=== PATIENT | female | born 1975 | race Caucasian/White ===

== ENCOUNTER 2016-12-31 18:34 | Emergency (ER) | payer OTHER ==
--- NOTE | 2016-12-31 21:55 | ED ORDER SUMMARY ---
..... Patient: LIVAN HOLLOWAY OrderSheet [facility] VisitID: [id number] [address] [place] [address] 41y, F Registration Date/Time: 12/31/2016 ORDER SHEET Weight: 109.7 kg (stated) Allergies: Amoxicillin GENERAL ORDERS: Pulse oximeter (:12/31/2016 RMarsden R.N. per protocol) (19:32 HSoule) Vitals (:12/31/2016 RMarsden R.N. per protocol) (19:32 HSoule) Chest 2V Urgent (19:12/31/2016 ABlanchette PA-C) (Ack 19:34 AMcQuoid ER Tech1) (20:20 RMarsden R.N.) US Venous Right (right leg pain with shortness of breath) Urgent (19:12/31/2016 ABlanchette PA-C) (Ack 19:34 AMcQuoid ER Tech1) (20:53 RMarsden R.N.) CTA Thorax w Cont (No) (pending) (r/o PE, short of breath since last night) Urgent (19:28 12/31/2016 ABlanchette PA-C) (Ack 19:34 AMcQuoid ER Tech1) (Cancelled: Other20:00 ABlanchette PA-C) CBC w Diff Urgent (19:30 12/31/2016 ABlanchette PA-C) (Ack 19:34 AMcQuoid ER Tech1) (19:38 RMarsden R.N.) CMP Urgent (19:30 12/31/2016 ABlanchette PA-C) (Ack 19:34 AMcQuoid ER Tech1) (19:38 RMarsden R.N.) D-Dimer Urgent (19:30 12/31/2016 ABlanchette PA-C) (Ack 19:34 AMcQuoid ER Tech1) (19:38 RMarsden R.N.) BNP Urgent (19:30 12/31/2016 ABlanchette PA-C) (Ack 19:34 AMcQuoid ER Tech1) (19:38 RMarsden R.N.) PT with INR Urgent (19:30 12/31/2016 ABlanchette PA-C) (Ack 19:34 AMcQuoid ER Tech1) (19:38 Queenie R.N.) MEDICATION ORDERS: IV FLUIDS: IV Saline Lock (19:15 12/31/2016 Queenie R.N. per protocol) (19:39 Queenie R.N.) ORDER SHEET NOTES: [Electronically signed by Char Aguirre PA-C (23:47 12/31/2016)] [Electronically signed by Evelyn Sanabria R.N. (02:54 01/01/2017)] [Electronically locked/signed by Evelyn Sanabria R.N. (02:54 01/01/2017)]
--- NOTE | 2016-12-31 21:55 | ED NURSING NOTES ---
Clinical Report - Nurses [facility] [address] [place] [address] 12/31/2016 18:36 Patient: LIVAN HOLLOWAY TRIAGE Triage time 19:00. Acuity: LEVEL 3. Chief Complaint: (SOB, R calf pain). 19:11 12/31/16. Alert. No acute distress. SEPSIS SCREEN: Sepsis Screen. Negative (no infection suspected/documented). ELI COMA SCORE: Eli Coma Scale: 15- eyes open spontaneously (4); best verbal response- oriented x 4 (5); best motor response- obeys commands (6). --19:11 Evelyn Sanabria R.N. 19:04 12/31/16. BP: 145/77 (regular adult cuff) taken on the left arm, while sitting. HR: 94. RR: 24. O2 saturation: 100%. Temp: 98.6 F. Pain level now: 02/20. --19:11 Evelyn Sanabria R.N. Weight: 109.7 kg stated. Height/Length: 66 inches Per Patient. BMI: 39.1. --19:11 Evelyn Sanabria R.N. Medications None. --19:07 Evelyn Sanabria R.N. Allergies Amoxicillin. --19:07 Evelyn Sanabria R.N. History Arrived by private vehicle. Historian: patient. Primary physician ([facility]). ( Patient was sent to ED from urgent care.). Onset. (Patient states she has had consistent calf pain for one week. She reports that SOB started last night.). ( Patient states she was diagnosed with cellulitis above her R ankle in June and reports that the same area has been "tingling since the leg pain started."). Treatment MANAGER TESTING: Took ibuprofen. (ice). PAST MEDICAL HX: Immunizations: up-to-date. Denies current . SOCIAL HX: Never smoker. No alcohol use or drug use. No infectious disease exposure. FALL RISK ASSESSMENT: Fall risk assessment completed. No fall risk identified. NUTRITIONAL RISK ASSESSMENT: The nutritional risk assessment revealed no deficiencies. FUNCTIONAL ASSESSMENT: Functional assessment: no impairments noted. LEARNING NEEDS ASSESSMENT: The learning needs assessment revealed no barriers. SKIN INTEGRITY ASSESSMENT: Skin integrity risk assessment completed. No skin integrity risk identified. --19:11 Evelyn Sanabria R.N. PROBLEMS: no known problems. ADDITIONAL SURGERIES: Tonsillectomy. --19:07 Evelyn Sanabria R.N. Interventions ID band on patient. To treatment room. --19:11 Evelyn Sanabria R.N. PHYSICAL ASSESSMENT 19:14 12/31/16. Ambulatory to room. GENERAL / NEURO / PSYCH: Alert. Oriented X 4. Appears in no acute distress. RESPIRATORY: Mild respiratory distress. Chest nontender. Breath sounds within normal limits. CVS: Pulses: right radial 2+, left radial 2+, right dorsalis pedis 2+ and left dorsalis pedis 2+. Capillary refill less than 2 seconds. Pulses within normal limits. GI / : Abdomen soft and nontender and normal bowel sounds. SKIN: Skin intact. Skin is warm and dry. Normal skin turgor. --19:14 Evelyn Sanabria R.N. NURSING PROGRESS NOTES Patient gowned. Two patient identifiers checked. Call light placed in reach. Side rails up x 2. Bed placed in lowest position. Brakes of bed on. Patient ready for evaluation- chart flagged and notification provided. --19:14 Evelyn Sanabria R.N. 19:23 12/31/2016 Site #1 started via IV in the right forearm with an 20g angiocath; one attempt. Blood drawn: rainbow set. Labeled in the presence of the patient and sent to the lab. Saline lock flushed with 10 mL saline. --19:39 Evelyn Sanabria R.N. 19:57 12/31/16. BP: 132/70. HR: 93. RR: 18. O2 saturation: 100%. --19:57 Antonina Hayes Oxygen administered. telemetry monitor, pulse oximeter and NIBP monitor placed on patient. Head of bed elevated. ( Patient given water. Fluids approved by ED provider.). --20:27 Evelyn Sanabria R.N. 20:53 12/31/16. ( US in room.). --20:53 Evelyn Sanabria R.N. Patient informed about reason for wait and about plan of care. --21:22 Evelyn Sanabria R.N. DISPOSITION / DISCHARGE 22:12/31/16. No learning barriers present. Discharge instructions provided and reviewed with the patient. Reviewed warnings. Reviewed medication(s). Treatments reviewed. Reviewed referrals. Activity restrictions reviewed. Patient verbalized understanding. Written instructions provided in Divehi. The patient was discharged home. She left the Emergency Department ambulatory and via private vehicle. Patient driving. --22:06 Evelyn Sanabria R.N. 22:12/31/2016 Site #1 removed upon discharge. Manual pressure and bandaid applied. --22:06 Evelyn Sanabria R.N. 22:12/31/16. BP: 140/71. HR: 97. RR: 18. O2 saturation: 100%. Temp: 98.3 F. Pain level now: 10. --22:06 Evelyn Sanabria R.N. Locked/Released at 01/01/2017 2:54 by Evelyn Sanabria R.N.
--- NOTE | 2016-12-31 21:55 | ED CLINICAL REPORT ---
Clinical Report - Physicians/Mid Levels [facility] [address] [place] [address] 12/31/2016 18:36 Patient: FLOR HOLLOWAY Time Seen: 19:17; initial patient contact. Arrived- By private vehicle. Historian- patient. HISTORY OF PRESENT ILLNESS Chief Complaint: LOWER EXTREMITY SWELLING. Modifying factors- worsened by standing and walking. Relieved by gyoq-giq-vbeusle analgesics. ((Patient states she has had consistent calf pain for one week. She reports that SOB started last night.). ( Patient states she was diagnosed with cellulitis above her R ankle in June and reports that the same area has been "tingling since the leg pain started.").). Severity is described as being moderate. The quality is noted to be sharp. It is described as radiating to the right knee and right groin. Symptoms located in the area of the right knee. The patient has had difficulty walking. Patient denies an injury. Similar symptoms previously: None. Recent medical care: Not recently seen/assessed. REVIEW OF SYSTEMS The patient has had difficulty breathing on exertion and a cough. All systems otherwise negative, except as recorded above. PAST HISTORY See nurses notes. Problems: no known problems. Medications: None. Allergies: Amoxicillin. SOCIAL HISTORY Never smoker. No alcohol use or drug use. No recent travel. FAMILY HISTORY Negative. ADDITIONAL NOTES The nursing notes have been reviewed with agreement regarding the chief complaint, HPI, ROS, PMH and patient medications and allergies. PHYSICAL EXAM Vital Signs: 12/31/2016 22:01 BP: 140/71. HR: 97. RR: 18. O2 saturation: 100%. Temp: 98.3 F. Pain level now: 7/10. Have been reviewed. Appearance: Alert. Oriented X3. No acute distress. Eyes: Pupils equal, round and reactive to light. Eyes normal inspection. ENT: Ears normal. Nose normal. Pharynx normal. Neck: Normal inspection. Neck supple. CVS: Normal heart rate and rhythm. Heart sounds normal. Respiratory: No respiratory distress. Breath sounds normal. (oxygen saturation dropped with ambulation to 97%). No decreased air movement. Abdomen: Soft and nontender. No organomegaly. Skin: Skin intact. Skin warm and dry. Normal skin color. Normal skin turgor. Extremities: Right knee: moderate tenderness and mild swelling located in the medial joint line. Limited ROM secondary to pain (diminished flexion, extension and external and internal rotation). Neurovascular intact distally. No ligamentous laxity present. No joint effusion. Extremities otherwise negative. Neuro: Oriented X 3. LABS, X-RAYS, AND EKG Chest X-ray: No acute disease. Normal Chest X-Ray. (Name: Flor Holloway : 1975 MR#: [id number] Ordering Provider: ALEKSANDRA NIEVES Exam(s): XR CHEST 2 VIEW Date of Exam: 12/31/2016 __ Addendum created at 12/31/2016 10:50:50 PM: Impression: 1. No acute cardiopulmonary disease. Addendum by: Yamileth De La Torre MD PROCEDURE: XR CHEST 2 VIEW INDICATION: SHORTNESS OF BREATH TECHNIQUE: Two views. COMPARISON: None. FINDINGS: The cardiomediastinal contour and central vasculature are within normal limits. The lungs are clear without focal consolidation, pleural effusion, or pneumothorax. The visualized osseous structures are intact. IMPRESSION: 1. Electronically Final signed by:Yamileth De La Torre MD 12/31/2016 10:50:21 PM Technologist: ANDERS). The X-rays were independently viewed by me, interpreted by the radiologist and discussed with the radiologist. Lower Extremity Sonography: . The exam was performed by a video game technician. The study was independently viewed by me, interpreted by the radiologist and discussed with the radiologist. Laboratory Tests: CBC w Diff: (ROBERTO: 12/31/2016 19:30) ( MsgRcvd 12/31/2016 19:43) Final results Test Result Flag Units (Reference) WHITE BLOOD COUNT 13.1 H K/uL (4.5-11.5) RED BLOOD COUNT 4.59 M/uL (4.00-5.20) HEMOGLOBIN 12.1 gm/dL (12.0-16.0) HEMATOCRIT 37.4 % (36.0-46.0) MEAN CELL VOLUME 82 fL (80-100) MEAN CORPUSCULAR HGB 27 pg (26-34) MEAN CORPUSCULAR HGB CONC 33 g/dL (31-37) RED CELL DISTRIBUTION WIDTH 13.0 % (11.6-14.8) PLATELET COUNT 366 K/uL (150-400) NEUTROPHIL % 63.7 % (50-75) LYMPH % 24.2 L % (25-40) MONO % 7.4 % (3-14) EOSINOPHIL % 3.9 % (0-4) BASOPHIL % 0.8 % (0-2) PT with INR: (ROBERTO: 12/31/2016 19:30) ( MsgRcvd 12/31/2016 19:53) Final results Test Result Flag Units (Reference) INR 1.0 (0.8-1.2) Low Intensity Therapy: INR 1.5-2.0 PT range 18.5-23.1Mod.Intensity Therapy: INR 2.0-3.0 PT range 23.1-31.5High Intensity Therapy: INR 2.5-3.5 PT range 27.4-35.5High Intensity Therapy 2: INR 3.0-4.0 PT range 31.5-39.3 D-DIMER QUANTITATIVE < 0.27 L ug/mLFEU (0.27-0.52) The primary value of this quantitative assay relates toits negative predictive value (i.e. exclusion) of pulmonaryembolism/deep vein thrombosis/DIC.Elevated levels of d-dimer may also occur with:, age, cancer, inflammation, liver disease,post-op, infection, hematoma, coronary disease, peripheralarteriopathy, bleeding disorders and thrombolytic treatment.Results should be correlated with other clinical andradiological data.Testing Methodology: Latex Immunoassay BNP: (ROBERTO: 12/31/2016 19:30) ( [facility] 12/31/2016 20:02) Final results Test Result Flag Units (Reference) B-TYPE NATRIURETIC PEPTIDE 30.6 pg/ml (5-100) CMP: (ROBERTO: 12/31/2016 19:30) ( CtgRcvd 12/31/2016 19:54) Final results Test Result Flag Units (Reference) GLUCOSE 115 H mg/dL (70-110) BUN 11 mg/dL (7-18) CREATININE 0.8 mg/dL (0.6-1.3) Estimated GFR >60 mL/min Estimated GFR- >60 mL/min Note: Persistent reduction over 3 months in eGFR<60 mL/min/1.73 m2 defines CKD. Patients with eGFR values>=60 mL/min/1.73 m2 may also have CKD if evidence ofpersistent proteinuria. Additional information may be foundat www.kidney.org. SODIUM 139 mmol/L (136-145) POTASSIUM 3.8 mmol/L (3.5-5.1) CHLORIDE 104 mmol/L (98-107) CARBON DIOXIDE 24 mmol/L (21-32) CALCIUM 9.1 mg/dL (8.5-10.1) TOTAL PROTEIN 7.7 g/dL (6.4-8.2) ALBUMIN 3.6 g/dL (3.3-5.0) BILIRUBIN, TOTAL 0.2 mg/dL (0.0-1.0) ALKALINE PHOSPHATASE 81 U/L (46-116) AST (SGOT) 19 U/L (15-37) ALT (SGPT) 25 U/L (12-78) . PROGRESS AND PROCEDURES Course of Care: right leg pain and shortness of breath for 2 days, right leg ultrasound neg for acute dvt, d dimer neg. chest xray unremarkable. low index of suspicion for PE, differential diagnosis includes but is not limited to copd, early acute process such as bronchitis, right knee arthritis,. Patient is stable. Physical exam findings are improved. Symptoms better. Patient/family counseled. CLINICAL IMPRESSION Acute bacterial bronchitis. Acute flare of primary osteoarthritis involving the right knee. INSTRUCTIONS Apply ice for 10 minutes three times a day for three days followed by moist heat. No strenuous activity. Rest. Warnings: Further evaluation is necessary. It is very important to follow up with a physician. Prescription Medications: Ibuprofen 600 mg tablets: take 1 tablet orally every 8 hours as needed for pain or stiffness. Dispense thirty (30). No refill. Zithromax Z-Jared 250 mg tablets: Take according to package instructions 2 orally today, followed by 1 orally every day for the next 4 days. Total course 5 days. No refills. Substitution is permissible. Albuterol HFA oral inhaler: inhale 1-2 puffs every 8 hours for 1 week, as needed for wheezing, difficulty breathing or shortness of breath, until symptoms improve. Dispense one (1) unit. No refill. Follow-up: Follow up with your doctor Monday if not well. Understanding of the discharge instructions verbalized by patient. (Electronically signed by Aleksandra Nieves PA-C 12/31/2016 23:47)
--- NOTE | 2016-12-31 21:55 | ED ORDER SUMMARY ---
..... Patient: LIVAN HOLLOWAY OrderSheet [facility] VisitID: [id number] [address] [place] [address] 41y, F Registration Date/Time: 12/31/2016 ORDER SHEET Weight: 109.7 kg (stated) Allergies: Amoxicillin GENERAL ORDERS: Pulse oximeter (:12/31/2016 RMarsden R.N. per protocol) (19:32 HSoule) Vitals (:12/31/2016 RMarsden R.N. per protocol) (19:32 HSoule) Chest 2V Urgent (19:12/31/2016 ABlanchette PA-C) (Ack 19:34 AMcQuoid ER Tech1) (20:20 RMarsden R.N.) US Venous Right (right leg pain with shortness of breath) Urgent (19:12/31/2016 ABlanchette PA-C) (Ack 19:34 AMcQuoid ER Tech1) (20:53 RMarsden R.N.) CTA Thorax w Cont (No) (pending) (r/o PE, short of breath since last night) Urgent (19:28 12/31/2016 ABlanchette PA-C) (Ack 19:34 AMcQuoid ER Tech1) (Cancelled: Other20:00 ABlanchette PA-C) CBC w Diff Urgent (19:30 12/31/2016 ABlanchette PA-C) (Ack 19:34 AMcQuoid ER Tech1) (19:38 RMarsden R.N.) CMP Urgent (19:30 12/31/2016 ABlanchette PA-C) (Ack 19:34 AMcQuoid ER Tech1) (19:38 RMarsden R.N.) D-Dimer Urgent (19:30 12/31/2016 ABlanchette PA-C) (Ack 19:34 AMcQuoid ER Tech1) (19:38 RMarsden R.N.) BNP Urgent (19:30 12/31/2016 ABlanchette PA-C) (Ack 19:34 AMcQuoid ER Tech1) (19:38 RMarsden R.N.) PT with INR Urgent (19:30 12/31/2016 ABlanchette PA-C) (Ack 19:34 AMcQuoid ER Tech1) (19:38 Queenie R.N.) MEDICATION ORDERS: IV FLUIDS: IV Saline Lock (19:15 12/31/2016 Queenie R.N. per protocol) (19:39 Queenie R.N.) ORDER SHEET NOTES: [Electronically signed by Char Aguirre PA-C (23:47 12/31/2016)] [Electronically signed by Evelyn Sanabria R.N. (02:54 01/01/2017)] [Electronically locked/signed by Evelyn Sanabria R.N. (02:54 01/01/2017)]
--- NOTE | 2016-12-31 21:55 | ED CLINICAL REPORT ---
Clinical Report - Physicians/Mid Levels [facility] [address] [place] [address] 12/31/2016 18:36 Patient: FLOR HOLLOWAY Time Seen: 19:17; initial patient contact. Arrived- By private vehicle. Historian- patient. HISTORY OF PRESENT ILLNESS Chief Complaint: LOWER EXTREMITY SWELLING. Modifying factors- worsened by standing and walking. Relieved by pjiz-ena-kchleep analgesics. ((Patient states she has had consistent calf pain for one week. She reports that SOB started last night.). ( Patient states she was diagnosed with cellulitis above her R ankle in June and reports that the same area has been "tingling since the leg pain started.").). Severity is described as being moderate. The quality is noted to be sharp. It is described as radiating to the right knee and right groin. Symptoms located in the area of the right knee. The patient has had difficulty walking. Patient denies an injury. Similar symptoms previously: None. Recent medical care: Not recently seen/assessed. REVIEW OF SYSTEMS The patient has had difficulty breathing on exertion and a cough. All systems otherwise negative, except as recorded above. PAST HISTORY See nurses notes. Problems: no known problems. Medications: None. Allergies: Amoxicillin. SOCIAL HISTORY Never smoker. No alcohol use or drug use. No recent travel. FAMILY HISTORY Negative. ADDITIONAL NOTES The nursing notes have been reviewed with agreement regarding the chief complaint, HPI, ROS, PMH and patient medications and allergies. PHYSICAL EXAM Vital Signs: 12/31/2016 22:01 BP: 140/71. HR: 97. RR: 18. O2 saturation: 100%. Temp: 98.3 F. Pain level now: 7/10. Have been reviewed. Appearance: Alert. Oriented X3. No acute distress. Eyes: Pupils equal, round and reactive to light. Eyes normal inspection. ENT: Ears normal. Nose normal. Pharynx normal. Neck: Normal inspection. Neck supple. CVS: Normal heart rate and rhythm. Heart sounds normal. Respiratory: No respiratory distress. Breath sounds normal. (oxygen saturation dropped with ambulation to 97%). No decreased air movement. Abdomen: Soft and nontender. No organomegaly. Skin: Skin intact. Skin warm and dry. Normal skin color. Normal skin turgor. Extremities: Right knee: moderate tenderness and mild swelling located in the medial joint line. Limited ROM secondary to pain (diminished flexion, extension and external and internal rotation). Neurovascular intact distally. No ligamentous laxity present. No joint effusion. Extremities otherwise negative. Neuro: Oriented X 3. LABS, X-RAYS, AND EKG Chest X-ray: No acute disease. Normal Chest X-Ray. (Name: Flor Holloway : 1975 MR#: [id number] Ordering Provider: ALEKSANDRA NIEVES Exam(s): XR CHEST 2 VIEW Date of Exam: 12/31/2016 __ Addendum created at 12/31/2016 10:50:50 PM: Impression: 1. No acute cardiopulmonary disease. Addendum by: Yamileth De La Torre MD PROCEDURE: XR CHEST 2 VIEW INDICATION: SHORTNESS OF BREATH TECHNIQUE: Two views. COMPARISON: None. FINDINGS: The cardiomediastinal contour and central vasculature are within normal limits. The lungs are clear without focal consolidation, pleural effusion, or pneumothorax. The visualized osseous structures are intact. IMPRESSION: 1. Electronically Final signed by:Yamileth De La Torre MD 12/31/2016 10:50:21 PM Technologist: ANDERS). The X-rays were independently viewed by me, interpreted by the radiologist and discussed with the radiologist. Lower Extremity Sonography: . The exam was performed by a irrigation service technician. The study was independently viewed by me, interpreted by the radiologist and discussed with the radiologist. Laboratory Tests: CBC w Diff: (ROBERTO: 12/31/2016 19:30) ( MsgRcvd 12/31/2016 19:43) Final results Test Result Flag Units (Reference) WHITE BLOOD COUNT 13.1 H K/uL (4.5-11.5) RED BLOOD COUNT 4.59 M/uL (4.00-5.20) HEMOGLOBIN 12.1 gm/dL (12.0-16.0) HEMATOCRIT 37.4 % (36.0-46.0) MEAN CELL VOLUME 82 fL (80-100) MEAN CORPUSCULAR HGB 27 pg (26-34) MEAN CORPUSCULAR HGB CONC 33 g/dL (31-37) RED CELL DISTRIBUTION WIDTH 13.0 % (11.6-14.8) PLATELET COUNT 366 K/uL (150-400) NEUTROPHIL % 63.7 % (50-75) LYMPH % 24.2 L % (25-40) MONO % 7.4 % (3-14) EOSINOPHIL % 3.9 % (0-4) BASOPHIL % 0.8 % (0-2) PT with INR: (ROBERTO: 12/31/2016 19:30) ( MsgRcvd 12/31/2016 19:53) Final results Test Result Flag Units (Reference) INR 1.0 (0.8-1.2) Low Intensity Therapy: INR 1.5-2.0 PT range 18.5-23.1Mod.Intensity Therapy: INR 2.0-3.0 PT range 23.1-31.5High Intensity Therapy: INR 2.5-3.5 PT range 27.4-35.5High Intensity Therapy 2: INR 3.0-4.0 PT range 31.5-39.3 D-DIMER QUANTITATIVE < 0.27 L ug/mLFEU (0.27-0.52) The primary value of this quantitative assay relates toits negative predictive value (i.e. exclusion) of pulmonaryembolism/deep vein thrombosis/DIC.Elevated levels of d-dimer may also occur with:, age, cancer, inflammation, liver disease,post-op, infection, hematoma, coronary disease, peripheralarteriopathy, bleeding disorders and thrombolytic treatment.Results should be correlated with other clinical andradiological data.Testing Methodology: Latex Immunoassay BNP: (ROBERTO: 12/31/2016 19:30) ( [facility] [place] [facility]) Final results Test Result Flag Units (Reference) B-TYPE NATRIURETIC PEPTIDE 30.6 pg/ml (5-100) CMP: (ROBERTO: 12/31/2016 19:30) ( NdgRcvd 12/31/2016 19:54) Final results Test Result Flag Units (Reference) GLUCOSE 115 H mg/dL (70-110) BUN 11 mg/dL (7-18) CREATININE 0.8 mg/dL (0.6-1.3) Estimated GFR >60 mL/min Estimated GFR- >60 mL/min Note: Persistent reduction over 3 months in eGFR<60 mL/min/1.73 m2 defines CKD. Patients with eGFR values>=60 mL/min/1.73 m2 may also have CKD if evidence ofpersistent proteinuria. Additional information may be foundat www.kidney.org. SODIUM 139 mmol/L (136-145) POTASSIUM 3.8 mmol/L (3.5-5.1) CHLORIDE 104 mmol/L (98-107) CARBON DIOXIDE 24 mmol/L (21-32) CALCIUM 9.1 mg/dL (8.5-10.1) TOTAL PROTEIN 7.7 g/dL (6.4-8.2) ALBUMIN 3.6 g/dL (3.3-5.0) BILIRUBIN, TOTAL 0.2 mg/dL (0.0-1.0) ALKALINE PHOSPHATASE 81 U/L (46-116) AST (SGOT) 19 U/L (15-37) ALT (SGPT) 25 U/L (12-78) . PROGRESS AND PROCEDURES Course of Care: right leg pain and shortness of breath for 2 days, right leg ultrasound neg for acute dvt, d dimer neg. chest xray unremarkable. low index of suspicion for PE, differential diagnosis includes but is not limited to copd, early acute process such as bronchitis, right knee arthritis,. Patient is stable. Physical exam findings are improved. Symptoms better. Patient/family counseled. CLINICAL IMPRESSION Acute bacterial bronchitis. Acute flare of primary osteoarthritis involving the right knee. INSTRUCTIONS Apply ice for 10 minutes three times a day for three days followed by moist heat. No strenuous activity. Rest. Warnings: Further evaluation is necessary. It is very important to follow up with a physician. Prescription Medications: Ibuprofen 600 mg tablets: take 1 tablet orally every 8 hours as needed for pain or stiffness. Dispense thirty (30). No refill. Zithromax Z-Jared 250 mg tablets: Take according to package instructions 2 orally today, followed by 1 orally every day for the next 4 days. Total course 5 days. No refills. Substitution is permissible. Albuterol HFA oral inhaler: inhale 1-2 puffs every 8 hours for 1 week, as needed for wheezing, difficulty breathing or shortness of breath, until symptoms improve. Dispense one (1) unit. No refill. Follow-up: Follow up with your doctor Monday if not well. Understanding of the discharge instructions verbalized by patient. (Electronically signed by Aleksandra Nieves PA-C 12/31/2016 23:47)
--- NOTE | 2016-12-31 21:55 | ED NURSING NOTES ---
Clinical Report - Nurses [facility] [address] [place] [address] 12/31/2016 18:36 Patient: LIVAN HOLLOWAY TRIAGE Triage time 19:00. Acuity: LEVEL 3. Chief Complaint: (SOB, R calf pain). 19:11 12/31/16. Alert. No acute distress. SEPSIS SCREEN: Sepsis Screen. Negative (no infection suspected/documented). ELI COMA SCORE: Eli Coma Scale: 15- eyes open spontaneously (4); best verbal response- oriented x 4 (5); best motor response- obeys commands (6). --19:11 Evelyn Sanabria R.N. 19:04 12/31/16. BP: 145/77 (regular adult cuff) taken on the left arm, while sitting. HR: 94. RR: 24. O2 saturation: 100%. Temp: 98.6 F. Pain level now: 02/20. --19:11 Evelyn Sanabria R.N. Weight: 109.7 kg stated. Height/Length: 66 inches Per Patient. BMI: 39.1. --19:11 Evelyn Sanabria R.N. Medications None. --19:07 Evelyn Sanabria R.N. Allergies Amoxicillin. --19:07 Evelyn Sanabria R.N. History Arrived by private vehicle. Historian: patient. Primary physician ([facility]). ( Patient was sent to ED from urgent care.). Onset. (Patient states she has had consistent calf pain for one week. She reports that SOB started last night.). ( Patient states she was diagnosed with cellulitis above her R ankle in June and reports that the same area has been "tingling since the leg pain started."). 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 (ice). PAST MEDICAL HX: Immunizations: up-to-date. Denies current . SOCIAL HX: Never smoker. No alcohol use or drug use. No infectious disease exposure. FALL RISK ASSESSMENT: Fall risk assessment completed. No fall risk identified. NUTRITIONAL RISK ASSESSMENT: The nutritional risk assessment revealed no deficiencies. FUNCTIONAL ASSESSMENT: Functional assessment: no impairments noted. LEARNING NEEDS ASSESSMENT: The learning needs assessment revealed no barriers. SKIN INTEGRITY ASSESSMENT: Skin integrity risk assessment completed. No skin integrity risk identified. --19:11 Evelyn Sanabria R.N. PROBLEMS: no known problems. ADDITIONAL SURGERIES: Tonsillectomy. --19:07 Evelyn Sanabria R.N. Interventions ID band on patient. To treatment room. --19:11 Evelyn Sanabria R.N. PHYSICAL ASSESSMENT 19:14 12/31/16. Ambulatory to room. GENERAL / NEURO / PSYCH: Alert. Oriented X 4. Appears in no acute distress. RESPIRATORY: Mild respiratory distress. Chest nontender. Breath sounds within normal limits. CVS: Pulses: right radial 2+, left radial 2+, right dorsalis pedis 2+ and left dorsalis pedis 2+. Capillary refill less than 2 seconds. Pulses within normal limits. GI / : Abdomen soft and nontender and normal bowel sounds. SKIN: Skin intact. Skin is warm and dry. Normal skin turgor. --19:14 Evelyn Sanabria R.N. NURSING PROGRESS NOTES Patient gowned. Two patient identifiers checked. Call light placed in reach. Side rails up x 2. Bed placed in lowest position. Brakes of bed on. Patient ready for evaluation- chart flagged and notification provided. --19:14 Evelyn Sanabria R.N. 19:23 12/31/2016 Site #1 started via IV in the right forearm with an 20g angiocath; one attempt. Blood drawn: rainbow set. Labeled in the presence of the patient and sent to the lab. Saline lock flushed with 10 mL saline. --19:39 Evelyn Sanabria R.N. 19:57 12/31/16. BP: 132/70. HR: 93. RR: 18. O2 saturation: 100%. --19:57 Antonina Hayes Oxygen administered. 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 Head of bed elevated. ( Patient given water. Fluids approved by ED provider.). --20:27 Evelyn Sanabria R.N. 20:53 12/31/16. ( US in room.). --20:53 Evelyn Sanabria R.N. Patient informed about reason for wait and about plan of care. --21:22 Evelyn Sanabria R.N. DISPOSITION / DISCHARGE 22:12/31/16. No learning barriers present. Discharge instructions provided and reviewed with the patient. Reviewed warnings. Reviewed medication(s). Treatments reviewed. Reviewed referrals. Activity restrictions reviewed. Patient verbalized understanding. Written instructions provided in Greek. The patient was discharged home. She left the Emergency Department ambulatory and via private vehicle. Patient driving. --22:06 Evelyn Sanabria R.N. 22:12/31/2016 Site #1 removed upon discharge. Manual pressure and bandaid applied. --22:06 Evelyn Sanabria R.N. 22:12/31/16. BP: 140/71. HR: 97. RR: 18. O2 saturation: 100%. Temp: 98.3 F. Pain level now: 10. --22:06 Evelyn Sanabria R.N. Locked/Released at 01/01/2017 2:54 by Evelyn Sanabria R.N.
--- NOTE | 2016-12-31 22:50 | DIAGNOSTIC IMAGING REPORT ---
PROCEDURE: XR CHEST 2 VIEW INDICATION: SHORTNESS OF BREATH TECHNIQUE: Two views. COMPARISON: None. FINDINGS: The cardiomediastinal contour and central vasculature are within normal limits. The lungs are clear without focal consolidation, pleural effusion, or pneumothorax. The visualized osseous structures are intact. IMPRESSION: 1.
--- NOTE | 2016-12-31 22:57 | DIAGNOSTIC IMAGING REPORT ---
PROCEDURE: US VENOUS - RIGHT EXT INDICATION: SWELLING TECHNIQUE: Duplex sonography of the deep venous system in the right lower extremity was performed. Compression and augmentation techniques were used. COMPARISON: None. FINDINGS: Each interrogated segment of deep vein from the common femoral vein into the calf veins demonstrates normal compressibility, augmentation and/or color Doppler flow without filling defect. No evidence of significant soft-tissue edema, soft-tissue mass or cyst. IMPRESSION: 1. No deep venous thrombosis in the right lower extremity. 2. Preliminary report given by the technologist to the emergency room provider.
--- NOTE | 2017-01-01 02:54 | ED DISCHARGE INSTRUCTIONS ---
Patient: LIVAN HOLLOWAY General Instructions [facility] VisitID: [id number] [address] [place] [address] 41y, F Registration Date/Time: 12/31/2016 Acute bacterial bronchitis. Acute flare of primary osteoarthritis involving the right knee. INSTRUCTIONS Apply ice for 10 minutes three times a day for three days followed by moist heat. No strenuous activity. Rest. Warnings: Further evaluation is necessary. It is very important to follow up with a physician. Prescription Medications: Ibuprofen 600 mg tablets: take 1 tablet orally every 8 hours as needed for pain or stiffness. Dispense thirty (30). No refill. Zithromax Z-Jared 250 mg tablets: Take according to package instructions 2 orally today, followed by 1 orally every day for the next 4 days. Total course 5 days. No refills. Substitution is permissible. Albuterol HFA oral inhaler: inhale 1-2 puffs every 8 hours for 1 week, as needed for wheezing, difficulty breathing or shortness of breath, until symptoms improve. Dispense one (1) unit. No refill. Follow-up: Follow up with your doctor Monday if not well. Understanding of the discharge instructions verbalized by patient. No strenuous activity. Rest. (Electronically signed by Char Aguirre PA-C 12/31/2016 23:47)
--- NOTE | 2017-01-01 02:54 | ED MED RECONCILIATION SUMMARY ---
Patient: LIVAN HOLLOWAY Medication Reconciliation Report Located Within [facility] VisitID: [id number] [address] [place] [address] 41y, F Registration Date/Time: 12/31/2016 Weight: 109.7 kg Height/Length: 66 in. BMI: 39.1 ALLERGIES: Amoxicillin The patient's Home Medications are listed below: NONE. The source(s) of the original Home Medication information: Not obtained. The following Medications were given to the patient in the Emergency Department: None. The following Medications were prescribed to the patient: Ibuprofen 600 mg tablets: take 1 tablet orally every 8 hours as needed for pain or stiffness. Dispense thirty (30). No refill. -- Char Aguirre PA-C Zithromax Z-Jared 250 mg tablets: Take according to package instructions 2 orally today, followed by 1 orally every day for the next 4 days. Total course 5 days. No refills. Substitution is permissible. -- Char Aguirre PA-C Albuterol HFA oral inhaler: inhale 1-2 puffs every 8 hours for 1 week, as needed for wheezing, difficulty breathing or shortness of breath, until symptoms improve. Dispense one (1) unit. No refill. -- Char Aguirre PA-C
--- NOTE | 2017-01-01 02:54 | ED MED RECONCILIATION SUMMARY ---
Patient: LIVAN HOLLOWAY Medication Reconciliation Report [facility] VisitID: [id number] [address] [place] [address] 41y, F Registration Date/Time: 12/31/2016 Weight: 109.7 kg Height/Length: 66 in. BMI: 39.1 ALLERGIES: Amoxicillin The patient's Home Medications are listed below: NONE. The source(s) of the original Home Medication information: Not obtained. The following Medications were given to the patient in the Emergency Department: None. The following Medications were prescribed to the patient: Ibuprofen 600 mg tablets: take 1 tablet orally every 8 hours as needed for pain or stiffness. Dispense thirty (30). No refill. -- Char Aguirre PA-C Zithromax Z-Jared 250 mg tablets: Take according to package instructions 2 orally today, followed by 1 orally every day for the next 4 days. Total course 5 days. No refills. Substitution is permissible. -- Char Aguirre PA-C Albuterol HFA oral inhaler: inhale 1-2 puffs every 8 hours for 1 week, as needed for wheezing, difficulty breathing or shortness of breath, until symptoms improve. Dispense one (1) unit. No refill. -- Char Augirre PA-C
--- NOTE | 2017-01-01 02:54 | ED DISCHARGE INSTRUCTIONS ---
Patient: LIVAN HOLLOWAY General Instructions [facility] VisitID: [id number] [address] [place] [address] 41y, F Registration Date/Time: 12/31/2016 Acute bacterial bronchitis. Acute flare of primary osteoarthritis involving the right knee. INSTRUCTIONS Apply ice for 10 minutes three times a day for three days followed by moist heat. No strenuous activity. Rest. Warnings: Further evaluation is necessary. It is very important to follow up with a physician. Prescription Medications: Ibuprofen 600 mg tablets: take 1 tablet orally every 8 hours as needed for pain or stiffness. Dispense thirty (30). No refill. Zithromax Z-Jared 250 mg tablets: Take according to package instructions 2 orally today, followed by 1 orally every day for the next 4 days. Total course 5 days. No refills. Substitution is permissible. Albuterol HFA oral inhaler: inhale 1-2 puffs every 8 hours for 1 week, as needed for wheezing, difficulty breathing or shortness of breath, until symptoms improve. Dispense one (1) unit. No refill. Follow-up: Follow up with your doctor Monday if not well. Understanding of the discharge instructions verbalized by patient. No strenuous activity. Rest. (Electronically signed by Char Aguirre PA-C 12/31/2016 23:47)
--- NOTE | 2017-01-01 02:54 | ED MAR SUMMARY ---
..... Medication Administration Record Merged With [facility] [address], [place] [id number] Patient: LIVAN HOLLOWAY Visit ID: [id number] 41y, F Weight: 109.7 kg Height/Length: 66 in BMI: 39.1 ALLERGIES: Amoxicillin
--- NOTE | 2017-01-01 02:54 | ED MAR SUMMARY ---
..... Medication Administration Record [facility] [address] [place], [place] [id number] Patient: LIVAN HOLLOWAY Visit ID: [id number] 41y, F Weight: 109.7 kg Height/Length: 66 in BMI: 39.1 ALLERGIES: Amoxicillin
== END 2016-12-31 22:07 | disposition home or self-care (01) ==
LOC: ED SRH 18:34
DX: J20.8 Acute bronchitis due to other specified organisms (principal); M17.11 Unilateral primary osteoarthritis, right knee; Z88.0 Allergy status to penicillin

== ENCOUNTER 2017-01-10 09:15 | Emergency (ER) | payer OTHER ==
--- NOTE | 2017-01-10 14:32 | DIAGNOSTIC IMAGING REPORT ---
PROCEDURE: CT ABD/PELVIS WITH CONTRAST CLINICAL INDICATION: GI BLEED TECHNIQUE: 125 ml of Isovue 300 were injected intravenously and axial images were obtained of the entire abdomen and pelvis with sagittal and coronal reformations. COMPARISON: None. FINDINGS: ABDOMEN: Lung bases are clear. Heart size is normal. Short-segment of the splenic flexure with wall thickening, infiltration of the adjacent fat and small lymph nodes. Radiopaque pills in the stomach and small bowel. Liver, gallbladder, pancreas, spleen, right adrenal gland and kidneys are unremarkable. 2 cm left adrenal mass. Normal abdominal aorta. PELVIS: Normal appendix. 2 cm Nabothian cyst. 2 cm left ovarian cyst. Normal uterus and bladder. There is no free fluid. Bones are unremarkable. IMPRESSION: 1. Short segment of the splenic flexure with wall thickening, inflammatory changes and small lymph nodes. Findings are most consistent with colitis ( probably infectious). Neoplasm is less likely. 2. 2 cm left adrenal mass 3. 2 cm left ovarian cyst 4. Results discussed with Dr. Bell All CT scans at this facility use dose modulation, iterative reconstruction, and/or weight-based dosing when appropriate to reduce radiation dose to as low as reasonably achievable.
--- NOTE | 2017-01-10 15:19 | ED ORDER SUMMARY ---
..... Patient: LIVAN HOLLOWAY OrderSheet [facility] VisitID: [id number] [place] [address] 41y, F Registration Date/Time: 01/10/2017 ORDER SHEET Weight: 108.8 kg (stated) Allergies: Amoxicillin GENERAL ORDERS: CBC w Diff Urgent (09:49 01/10/2017 Eneida Brock) (Ack 9:50 LNations ER Tech1) (12:20 Justyn R.N.) CMP Urgent (:49 01/10/2017 Eneida Brock) (Ack 9:50 LNations ER Tech1) (12:20 Justyn R.N.) UA-Culture if indicated Urgent (:01/10/2017 Eneida Brock) (Ack 9:50 LNations ER Tech1) (10:36 LWhalen R.N.) Amylase Urgent (:01/10/2017 Eneida Brock) (Ack 9:51 LNations ER Tech1) (12:20 Justyn R.N.) Lipase Urgent (09:49 01/10/2017 Eneida Brock) (Ack 9:51 LNations ER Tech1) (12:20 Justyn R.N.) Urine Urgent (:01/10/2017 Eneida Brock) (Ack 9:51 LNations ER Tech1) (12:20 Justyn R.N.) Stool for C. Difficile Urgent (09:01/10/2017 Eneida Brock) (Ack 9:52 LNations ER Tech1) (15:26 LWhalen R.N.) Stool WBC Urgent (09:49 01/10/2017 Eneida Brock) (Ack 9:52 LNations ER Tech1) (15:26 LWhalen R.N.) Culture, Stool Urgent (:01/10/2017 Eneida Brock) (Ack 9:52 LNations ER Tech1) (15:26 LWhalen R.N.) CT Abd/Pel w Cont (No) (4/0.8) Urgent (13:52 01/10/2017 Eneida Brock) (Ack 13:53 PWeiler ER Tech1) (15:26 LWhalen R.N.) MEDICATION ORDERS: Lidocaine Injection 2 % (soln) (NOW) (11:19 01/10/2017 Eneida Brock) (Cancelled: Physician Order11:23 Eneida Brock) Potassium Chloride PO 20 meq (NOW) (12:03 01/10/2017 Eneida Brock) (Ack 12:20 Justyn R.N.) (12:26 Justyn R.N.) Bentyl PO 20 mg (NOW) (12:08 01/10/2017 Eneida Brock) (Ack 12:20 Justyn R.N.) (12:26 Justyn R.N.) Ciprofloxacin PO 500 mg (NOW) (15:10 01/10/2017 Eneida Brock) (15:30 LWmeche R.N.) Flagyl PO 500 mg (NOW) (15:10 01/10/2017 Eneida Brock) (15:31 LWhalchapo R.N.) IV FLUIDS: IV NS : initial bolus none -, then 1000 mL/hr for X1 (NOW) (09:48 01/10/2017 Eneida Brock) (Ack 9:49 Justyn R.N.) (10:37 LWhalen R.N.) Zofran IV 4 mg (NOW) (09:48 01/10/2017 Eneida Brock) (Ack 9:49 Justyn R.N.) (10:37 LWhalchapo R.N.) Benadryl IV 25 mg (NOW) (10:16 01/10/2017 Eneida Brock) (Cancelled: Physician Order10:16 Eneida Brock) ORDER SHEET NOTES: [Electronically signed by Ruddy Vaca R.N. (19:15 01/10/2017)] [Electronically signed by Dayn Bell Dr. (21:22 01/10/2017)] [Electronically locked/signed by Ruddy Vaca R.N. (19:15 01/10/2017)]
--- NOTE | 2017-01-10 15:19 | ED CLINICAL REPORT ---
Clinical Report - Physicians/Mid Levels [facility] [address] [place] [address] 01/10/2017 9:15 Patient: LIVAN HOLLOWAY Time Seen: 921. Arrived- By private vehicle. Historian- patient. HISTORY OF PRESENT ILLNESS Chief Complaint: VOMITING and DIARRHEA. This started about 5 days ago and is still present (persistent). It was gradual in onset and has been intermittent. The patient has had nausea, vomiting, diarrhea and abdominal pain. No black stools, bloody stools, constipation or known contact with a sick individual. Has recently been on antibiotics. Last bowel movement: recently. The illness is described as moderate. Similar symptoms previously: None. Recent medical care: The patient was seen recently at this facility in the emergency department. ( For URI and was Rx'd Azithromycin). REVIEW OF SYSTEMS The patient has had fever and dizziness. No muscle aches, difficulty with urination, cough or difficulty breathing. All systems otherwise negative, except as recorded above. PAST HISTORY Arthritis of knee Bronchitis. Surgeries: Tonsillectomy. Medications: None. Allergies: Amoxicillin. SOCIAL HISTORY Never smoker. No alcohol use or drug use. ADDITIONAL NOTES The nursing notes have been reviewed. PHYSICAL EXAM Vital Signs: 01/10/2017 09:21 BP: 147/60. HR: 110. RR: 18. O2 saturation: 97%. Temp: 98.8 F. Pain level now: 6/10. Have been reviewed. Hypertensive. Tachycardic. Respiratory rate normal. Temperature normal. Oxygen saturation normal. Appearance: Alert. Oriented X3. No acute distress. Eyes: Eyes normal inspection. ENT: Dry mucous membranes present. CVS: Tachycardia. Heart sounds normal. Rhythm normal. Respiratory: No respiratory distress. Breath sounds normal. Abdomen: Soft. Mild tenderness diffusely and in the right upper quadrant. Positive Rao's sign. No guarding, rebound tenderness or obturator or psoas sign present. Bowel sounds normal. No organomegaly. No mass. Skin: Skin warm and dry. No rash. Extremities: No lower extremity edema. Neuro: Oriented X 3. LABS, X-RAYS, AND EKG Laboratory Tests: UA-Culture if indicated: (ROBERTO: 01/10/2017 10:28) ( [facility] 01/10/2017 10:48) Final results Test Result Flag Units (Reference) URINE COLOR YELLOW URINE APPEARANCE CLEAR URINE GLUCOSE NEGATIVE (NEGATIVE) URINE BILIRUBIN NEGATIVE (NEGATIVE) URINE KETONE 1+ (NEGATIVE) URINE SPECIFIC GRAVITY <= 1.005 L (1.010-1.030) URINE PH 5.5 (5.0-8.0) URINE PROTEIN NEGATIVE (NEGATIVE) URINE UROBILINOGEN 0.2 EU/dL (0.2-1.0) URINE NITRITE NEGATIVE (NEGATIVE) URINE BLOOD 2+ (NEGATIVE) URINE LEUK ESTERASE NEGATIVE (NEGATIVE) URINE RBC 1-3 rbc/hpf (0-1) URINE WBC RARE wbc/hpf (0-1) URINE EPITHELIAL CELLS 0-1 EPI/hpf (0-5) URINE BACTERIA NONE SEEN (NONE SEEN) URINE COMMENT CULT NOT INDICATED 1+ MUCOUSURINE CULTURES ARE SET-UP BASED ON THE FOLLOWING CRITERIA:POSITIVE NITRITEPOSITIVE LEUKOCYTE ESTERASEGREATER THAN 10 WHITE BLOOD CELLSMODERATE (2+) OR GREATER BACTERIA Urine: (ROBERTO: 01/10/2017 10:28) ( [facility] 01/10/2017 10:38) Final results Test Result Flag Units (Reference) URINE NEGATIVE . PROGRESS AND PROCEDURES Disposition: Discharged home in good and improved condition. Condition: good. CLINICAL IMPRESSION Acute infectious colitis. No ischemic colitis. INSTRUCTIONS Do not work today, tomorrow. Drink plenty of fluids until better. (Gatoraid/Poweraid). Your Current Medications: CONTINUE TAKING THE FOLLOWING MEDICATIONS: None*. Prescription Medications: Cipro 500 mg: take 1 tab orally every 12 hours for 7 days. No refills. Substitution is permissible. Flagyl 500 mg: Take 1 tablet orally every 12 hours for 7 days. No refill. Substitution is permissible Follow-up: Follow up with your doctor in about two days. Call for an appointment. Screening today revealed the patient's blood pressure to be in the pre-hypertensive range. The patient should follow up with a primary care provider for blood pressure management. (Electronically signed by Dany Bell Dr. 01/10/2017 21:22)
--- NOTE | 2017-01-10 15:19 | ED NURSING NOTES ---
Clinical Report - Nurses [facility] [address] [place] [address] 01/10/2017 9:15 Patient: LIVAN HOLLOWAY TRIAGE Triage time 09:22. Acuity: LEVEL 3. Chief Complaint: ABDOMINAL PAIN, NAUSEA and DIARRHEA. Alert. No acute distress. [place] COMA SCORE: [place] Coma Scale: 15- eyes open spontaneously (4); best verbal response- oriented x 4 (5); best motor response- obeys commands (6). --09:26 Tesha House R.N. 09:21 01/10/17. BP: 147/60. HR: 110. RR: 18. O2 saturation: 97% on room air. Temp: 98.8 F. Pain level now: 01/21. --09:26 Tesha House R.N. Weight: 108.8 kg stated. Height/Length: 65 inches Per Patient. BMI: 40. --09:24 Tesha House R.N. Medications None. --09:23 Tesha House R.N. Medication/allergy information source: the patient. --09:26 Tesha House R.N. Allergies Amoxicillin. --09:23 Tesha House R.N. History Arrived by private vehicle. Historian: patient. Unaccompanied. Primary physician ([facility]). Onset. (about 6 days ago). ( constant). Relates location as generalized across abdomen. Provoking / relieving factors: worsened by movement and walking; relieved by rest. ( has seen a doctor). PAST MEDICAL HX: Last normal menstrual period- December 2016. SOCIAL HX: Never smoker. No alcohol use or drug use. FALL RISK ASSESSMENT: Fall risk assessment completed. No fall risk identified. FUNCTIONAL ASSESSMENT: Functional assessment: no impairments noted. LEARNING NEEDS ASSESSMENT: The learning needs assessment revealed no barriers. --09:26 Tesha House R.N. 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 --09:27 Tesha House R.N. Assessment GENERAL / NEURO / PSYCH: Alert. Oriented X 4. Appears in no acute distress. Patient appears calm and cooperative. RESPIRATORY: Respirations not labored. SKIN: Skin is warm and dry. --: Tesha House R.N. Interventions ID and allergy band on patient. To treatment room. --: Tesha House R.N. PHYSICAL ASSESSMENT 09:01/10/17. Ambulatory to room. Patient gowned. GENERAL / NEURO / PSYCH: Alert. Oriented X 4. Appears in no acute distress. RESPIRATORY: Respirations not labored. SKIN: Skin is warm and dry. --: Tesha House R.N. NURSING PROGRESS NOTES 09:01/10/17. Pulse oximeter and NIBP monitor placed on patient. Patient gowned. Head of bed elevated. Call light placed in reach. Side rails up x 1. Bed placed in lowest position. Brakes of bed on. --: Tesha House R.N. 10:37 01/10/2017 Site #1 started via IV in the left upper arm with an 22g angiocath, with aseptic technique and good blood return; two attempts. Saline lock flushed with 10 mL saline. --10:37 Ruddy Vaca R.N. 10:37 01/10/2017 Started bag #1 1000 mL IV Fluids IV NS (Saline); at 999 mL/hr over 1 hour(s) via site #1 via dial-a-flow. Allergies verified and confirmed 5 rights. IV patency established. IV site checked: no pain, redness, or swelling. IV flushed thoroughly pre- and post-medication administration. --10:37 Ruddy Vaca R.N. 10:37 01/10/2017 Zofran (Ondansetron HCl) IVP 4 mg given over 2 minute(s) via site #1. Allergies verified and confirmed 5 rights. IV patency established. IV site checked: no pain, redness, or swelling. IV flushed thoroughly pre- and post-medication administration. --10:37 Ruddy Vaca R.N. 10:35 01/10/17. BP: 136/72. HR: 74. RR: 18. O2 saturation: 98%. --10:51 Ruddy Vaca R.N. 11:59 01/10/17. Reassessment after fluids administered. She is calm and resting quietly. Overall patient status is the same- she states feels the same (pt unable to collect a stool specimen at this time, had been up to the BR twice). SKIN: Skin is warm and dry. --11:59 Tesha House R.N. 12:01/10/2017 Potassium Chloride (Potassium Chloride ER) PO Tablets 20 meq given. Allergies verified and confirmed 5 rights. --12:26 Tesha House R.N. 12:01/10/2017 Bentyl (Dicyclomine HCl) PO Tablets 20 mg given. Allergies verified and confirmed 5 rights. --12:26 Tesha House R.N. 14:01/10/2017 IV Fluids IV NS Discontinued: bag #1 infused. Total amount infused: 1000 mL. IV patency established. IV site checked: no pain, redness, or swelling. IV flushed thoroughly. --14:01 Ruddy Vaca R.N. 13:01/10/17. BP: 129/73. HR: 88. RR: 18. O2 saturation: 98%. 12:01/10/17. BP: 110/78. HR: 83. RR: 18. O2 saturation: 99%. 11:01/10/17. BP: 122/43. HR: 83. RR: 18. O2 saturation: 98%. --14:46 Ruddy Vaca R.N. 15:30 01/10/2017 Ciprofloxacin (Ciprofloxacin) PO Tablets 500 mg given. Allergies verified and confirmed 5 rights. --15:30 Ruddy Vaca R.N. 15:31 01/10/2017 Flagyl (MetroNIDAZOLE) PO Tablets 500 mg given. Allergies verified and confirmed 5 rights. --15:31 Ruddy Vaca R.N. DISPOSITION / DISCHARGE 15:01/10/2017 Site #1 removed upon discharge. Catheter intact. Pressure dressing applied. --15:41 Ruddy Vaca R.N. Departure time: 15:Jan 10 2017. Condition at departure: improved. No learning barriers present. Discharge instructions provided and reviewed with the patient. Reviewed warnings. Reviewed medication(s). Treatments reviewed. Reviewed referrals. Work note given. Patient verbalized understanding. Written instructions provided in Albanian. The patient was discharged home and accompanied by knitted garment finisher. She left the Emergency Department ambulatory and via private vehicle. Night Order Selector driving. --15:41 Ruddy Vaca R.N. 15:33 01/10/17. BP: 133/84. HR: 90. RR: 18. O2 saturation: 100%. Temp: 98.2 F. Pain level now 01/21. --15:41 Ruddy Vaca R.N. Locked/Released at 01/10/2017 19:15 by Ruddy Vaca R.N.
--- NOTE | 2017-01-10 15:19 | ED CLINICAL REPORT ---
Clinical Report - Physicians/[facility] [address] [place] [address] 01/10/2017 9:15 Patient: LIVAN HOLLOWAY Time Seen: 921. Arrived- By private vehicle. Historian- patient. HISTORY OF PRESENT ILLNESS Chief Complaint: VOMITING and DIARRHEA. This started about 5 days ago and is still present (persistent). It was gradual in onset and has been intermittent. The patient has had nausea, vomiting, diarrhea and abdominal pain. No black stools, bloody stools, constipation or known contact with a sick individual. Has recently been on antibiotics. Last bowel movement: recently. The illness is described as moderate. Similar symptoms previously: None. Recent medical care: The patient was seen recently at this facility in the emergency department. ( For URI and was Rx'd Azithromycin). REVIEW OF SYSTEMS The patient has had fever and dizziness. No muscle aches, difficulty with urination, cough or difficulty breathing. All systems otherwise negative, except as recorded above. PAST HISTORY Arthritis of knee Bronchitis. Surgeries: Tonsillectomy. Medications: None. Allergies: Amoxicillin. SOCIAL HISTORY Never smoker. No alcohol use or drug use. ADDITIONAL NOTES The nursing notes have been reviewed. PHYSICAL EXAM Vital Signs: 01/10/2017 09:21 BP: 147/60. HR: 110. RR: 18. O2 saturation: 97%. Temp: 98.8 F. Pain level now: 6/10. Have been reviewed. Hypertensive. Tachycardic. Respiratory rate normal. Temperature normal. Oxygen saturation normal. Appearance: Alert. Oriented X3. No acute distress. Eyes: Eyes normal inspection. ENT: Dry mucous membranes present. CVS: Tachycardia. Heart sounds normal. Rhythm normal. Respiratory: No respiratory distress. Breath sounds normal. Abdomen: Soft. Mild tenderness diffusely and in the right upper quadrant. Positive Rao's sign. No guarding, rebound tenderness or obturator or psoas sign present. Bowel sounds normal. No organomegaly. No mass. Skin: Skin warm and dry. No rash. Extremities: No lower extremity edema. Neuro: Oriented X 3. LABS, X-RAYS, AND EKG Laboratory Tests: UA-Culture if indicated: (ROBERTO: 01/10/2017 10:28) ( [facility] 01/10/2017 10:48) Final results Test Result Flag Units (Reference) URINE COLOR YELLOW URINE APPEARANCE CLEAR URINE GLUCOSE NEGATIVE (NEGATIVE) URINE BILIRUBIN NEGATIVE (NEGATIVE) URINE KETONE 1+ (NEGATIVE) URINE SPECIFIC GRAVITY <= 1.005 L (1.010-1.030) URINE PH 5.5 (5.0-8.0) URINE PROTEIN NEGATIVE (NEGATIVE) URINE UROBILINOGEN 0.2 EU/dL (0.2-1.0) URINE NITRITE NEGATIVE (NEGATIVE) URINE BLOOD 2+ (NEGATIVE) URINE LEUK ESTERASE NEGATIVE (NEGATIVE) URINE RBC 1-3 rbc/hpf (0-1) URINE WBC RARE wbc/hpf (0-1) URINE EPITHELIAL CELLS 0-1 EPI/hpf (0-5) URINE BACTERIA NONE SEEN (NONE SEEN) URINE COMMENT CULT NOT INDICATED 1+ MUCOUSURINE CULTURES ARE SET-UP BASED ON THE FOLLOWING CRITERIA:POSITIVE NITRITEPOSITIVE LEUKOCYTE ESTERASEGREATER THAN 10 WHITE BLOOD CELLSMODERATE (2+) OR GREATER BACTERIA Urine: (ROBERTO: 01/10/2017 10:28) ( [facility] [place] 01/10/2017 10:38) Final results Test Result Flag Units (Reference) URINE NEGATIVE . PROGRESS AND PROCEDURES Disposition: Discharged home in good and improved condition. Condition: good. CLINICAL IMPRESSION Acute infectious colitis. No ischemic colitis. INSTRUCTIONS Do not work today, tomorrow. Drink plenty of fluids until better. (Gatoraid/Poweraid). Your Current Medications: CONTINUE TAKING THE FOLLOWING MEDICATIONS: None*. Prescription Medications: Cipro 500 mg: take 1 tab orally every 12 hours for 7 days. No refills. Substitution is permissible. Flagyl 500 mg: Take 1 tablet orally every 12 hours for 7 days. No refill. Substitution is permissible Follow-up: Follow up with your doctor in about two days. Call for an appointment. Screening today revealed the patient's blood pressure to be in the pre-hypertensive range. The patient should follow up with a primary care provider for blood pressure management. (Electronically signed by Dany Bell Dr. 01/10/2017 21:22)
--- NOTE | 2017-01-10 15:19 | ED NURSING NOTES ---
Clinical Report - Nurses [facility] [address] [place] [address] 01/10/2017 9:15 Patient: LIVAN HOLLOWAY TRIAGE Triage time 09:22. Acuity: LEVEL 3. Chief Complaint: ABDOMINAL PAIN, NAUSEA and DIARRHEA. Alert. No acute distress. [place] COMA SCORE: [place] Coma Scale: 15- eyes open spontaneously (4); best verbal response- oriented x 4 (5); best motor response- obeys commands (6). --09:26 Tesha House R.N. 09:21 01/10/17. BP: 147/60. HR: 110. RR: 18. O2 saturation: 97% on room air. Temp: 98.8 F. Pain level now: 01/21. --09:26 Tesha House R.N. Weight: 108.8 kg stated. Height/Length: 65 inches Per Patient. BMI: 40. --09:24 Tesha House R.N. Medications None. --09:23 Tesha House R.N. Medication/allergy information source: the patient. --09:26 Tesha House R.N. Allergies Amoxicillin. --09:23 Tesha House R.N. History Arrived by private vehicle. Historian: patient. Unaccompanied. Primary physician ([facility]). Onset. (about 6 days ago). ( constant). Relates location as generalized across abdomen. Provoking / relieving factors: worsened by movement and walking; relieved by rest. ( has seen a doctor). PAST MEDICAL HX: Last normal menstrual period- December 2016. SOCIAL HX: Never smoker. No alcohol use or drug use. FALL RISK ASSESSMENT: Fall risk assessment completed. No fall risk identified. FUNCTIONAL ASSESSMENT: Functional assessment: no impairments noted. LEARNING NEEDS ASSESSMENT: The learning needs assessment revealed no barriers. --09:26 Tesha House R.N. 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 --09:27 Tesha House R.N. Assessment GENERAL / NEURO / PSYCH: Alert. Oriented X 4. Appears in no acute distress. Patient appears calm and cooperative. RESPIRATORY: Respirations not labored. SKIN: Skin is warm and dry. --: Tesha House R.N. Interventions ID and allergy band on patient. To treatment room. --: Tesha House R.N. PHYSICAL ASSESSMENT 09:01/10/17. Ambulatory to room. Patient gowned. GENERAL / NEURO / PSYCH: Alert. Oriented X 4. Appears in no acute distress. RESPIRATORY: Respirations not labored. SKIN: Skin is warm and dry. --: Tesha House R.N. NURSING PROGRESS NOTES 09:01/10/17. Pulse oximeter and NIBP monitor placed on patient. Patient gowned. Head of bed elevated. Call light placed in reach. Side rails up x 1. Bed placed in lowest position. Brakes of bed on. --: Tesha House R.N. 10:37 01/10/2017 Site #1 started via IV in the left upper arm with an 22g angiocath, with aseptic technique and good blood return; two attempts. Saline lock flushed with 10 mL saline. --10:37 Ruddy Vaca R.N. 10:37 01/10/2017 Started bag #1 1000 mL IV Fluids IV NS (Saline); at 999 mL/hr over 1 hour(s) via site #1 via dial-a-flow. Allergies verified and confirmed 5 rights. IV patency established. IV site checked: no pain, redness, or swelling. IV flushed thoroughly pre- and post-medication administration. --10:37 Ruddy Vaca R.N. 10:37 01/10/2017 Zofran (Ondansetron HCl) IVP 4 mg given over 2 minute(s) via site #1. Allergies verified and confirmed 5 rights. IV patency established. IV site checked: no pain, redness, or swelling. IV flushed thoroughly pre- and post-medication administration. --10:37 Ruddy Vaca R.N. 10:35 01/10/17. BP: 136/72. HR: 74. RR: 18. O2 saturation: 98%. --10:51 Ruddy Vaca R.N. 11:59 01/10/17. Reassessment after fluids administered. She is calm and resting quietly. Overall patient status is the same- she states feels the same (pt unable to collect a stool specimen at this time, had been up to the BR twice). SKIN: Skin is warm and dry. --11:59 Tesha House R.N. 12:01/10/2017 Potassium Chloride (Potassium Chloride ER) PO Tablets 20 meq given. Allergies verified and confirmed 5 rights. --12:26 Tesha House R.N. 12:01/10/2017 Bentyl (Dicyclomine HCl) PO Tablets 20 mg given. Allergies verified and confirmed 5 rights. --12:26 Tesha House R.N. 14:01/10/2017 IV Fluids IV NS Discontinued: bag #1 infused. Total amount infused: 1000 mL. IV patency established. IV site checked: no pain, redness, or swelling. IV flushed thoroughly. --14:01 Ruddy Vaca R.N. 13:01/10/17. BP: 129/73. HR: 88. RR: 18. O2 saturation: 98%. 12:01/10/17. BP: 110/78. HR: 83. RR: 18. O2 saturation: 99%. 11:01/10/17. BP: 122/43. HR: 83. RR: 18. O2 saturation: 98%. --14:46 Ruddy Vaca R.N. 15:30 01/10/2017 Ciprofloxacin (Ciprofloxacin) PO Tablets 500 mg given. Allergies verified and confirmed 5 rights. --15:30 Ruddy Vaca R.N. 15:31 01/10/2017 Flagyl (MetroNIDAZOLE) PO Tablets 500 mg given. Allergies verified and confirmed 5 rights. --15:31 Ruddy Vaca R.N. DISPOSITION / DISCHARGE 15:01/10/2017 Site #1 removed upon discharge. Catheter intact. Pressure dressing applied. --15:41 Ruddy Vaca R.N. Departure time: 15:Jan 10 2017. Condition at departure: improved. No learning barriers present. Discharge instructions provided and reviewed with the patient. Reviewed warnings. Reviewed medication(s). Treatments reviewed. Reviewed referrals. Work note given. Patient verbalized understanding. Written instructions provided in [place]. The patient was discharged home and accompanied by buhr mill operator. She left the Emergency Department ambulatory and via private vehicle. Anthropology Instructor driving. --15:41 Ruddy Vaca R.N. 15:33 01/10/17. BP: 133/84. HR: 90. RR: 18. O2 saturation: 100%. Temp: 98.2 F. Pain level now 01/21. --15:41 Ruddy Vaca R.N. Locked/Released at 01/10/2017 19:15 by Ruddy Vaca R.N.
--- NOTE | 2017-01-10 21:23 | ED DISCHARGE INSTRUCTIONS ---
Patient: LIVAN HOLLOWAY General Instructions [facility] Visit[facility]: [id number] [address] [place] [address] 41y, F Registration Date/Time: 01/10/2017 Acute infectious colitis. No ischemic colitis. INSTRUCTIONS Do not work today, tomorrow. Drink plenty of fluids until better. (Gatoraid/Poweraid). Your Current Medications: CONTINUE TAKING THE FOLLOWING MEDICATIONS: None*. Prescription Medications: Cipro 500 mg: take 1 tab orally every 12 hours for 7 days. No refills. Substitution is permissible. Flagyl 500 mg: Take 1 tablet orally every 12 hours for 7 days. No refill. Substitution is permissible Follow-up: Follow up with your doctor in about two days. Call for an appointment. Screening today revealed the patient's blood pressure to be in the pre-hypertensive range. The patient should follow up with a primary care provider for blood pressure management. ADDITIONAL INFORMATION Ciprofloxacin Hydrochloride Oral tablet What is this medicine? CIPROFLOXACIN (sip sharon FLOX a sin) is a quinolone antibiotic. It is used to treat certain kinds of bacterial infections. It will not work for colds, flu, or other viral infections. How should I use this medicine? Take this medicine by mouth with a glass of water. Follow the directions on the prescription label. Take your medicine at regular intervals. Do not take your medicine more often than directed. Take all of your medicine as directed even if you think your are better. Do not skip doses or stop your medicine early. You can take this medicine with food or on an empty stomach. It can be taken with a meal that contains dairy or calcium, but do not take it alone with a dairy product, like milk or yogurt or calcium-fortified juice. A special MedGuide will be given to you by the pharmacist with each prescription and refill. Be sure to read this information carefully each time. Talk to your chef assistant regarding the use of this medicine in children. Special care may be needed. What side effects may I notice from receiving this medicine? Side effects that you should report to your doctor or health child care supervisor as soon as possible: - allergic reactions like skin rash, itching or hives, swelling of the face, lips, or tongue - breathing problems - confusion, nightmares or hallucinations - feeling faint or lightheaded, falls - irregular heartbeat - joint, muscle or tendon pain or swelling - pain or trouble passing urine -persistent headache with or without blurred vision - redness, blistering, peeling or loosening of the skin, including inside the mouth - seizure - unusual pain, numbness, tingling, or weakness Side effects that usually do not require medical attention (report to your doctor or health child care supervisor if they continue or are bothersome): - diarrhea - nausea or stomach upset - white patches or sores in the mouth What may interact with this medicine? Do not take this medicine with any of the following medications: cisapride droperidol terfenadine tizanidine This medicine may also interact with the following medications: antacids caffeine cyclosporin didanosine (ddI) buffered tablets or powder medicines for diabetes medicines for inflammation like ibuprofen, naproxen methotrexate multivitamins omeprazole phenytoin probenecid sucralfate theophylline warfarin What if I miss a dose? If you miss a dose, take it as soon as you can. If it is almost time for your next dose, take only that dose. Do not take double or extra doses. Where should I keep my medicine? Keep out of the reach of children. Store at room temperature below 30 degrees C (86 degrees F). Keep container tightly closed. Throw away any unused medicine after the expiration date. What should I tell my health care provider before I take this medicine? They need to know if you have any of these conditions: -bone problems -cerebral disease -joint problems -irregular heartbeat -kidney disease -liver disease -myasthenia gravis -seizure disorder -tendon problems -an unusual or allergic reaction to ciprofloxacin, other antibiotics or medicines, foods, dyes, or preservatives - or trying to get -breast-feeding What should I watch for while using this medicine? Tell your doctor or health child care supervisor if your symptoms do not improve. Do not treat diarrhea with over the counter products. Contact your doctor if you have diarrhea that lasts more than 2 days or if it is severe and watery. You may get drowsy or dizzy. Do not drive, use machinery, or do anything that needs mental alertness until you know how this medicine affects you. Do not stand or sit up quickly, especially if you are an older patient. This reduces the risk of dizzy or fainting spells. This medicine can make you more sensitive to the sun. Keep out of the sun. If you cannot avoid being in the sun, wear protective clothing and use sunscreen. Do not use sun lamps or tanning beds/booths. Avoid antacids, aluminum, calcium, iron, magnesium, and zinc products for 6 hours before and 2 hours after taking a dose of this medicine. Metronidazole Oral tablet What is this medicine? METRONIDAZOLE (me florence NI da zolanat) is an antiinfective. It is used to treat certain kinds of bacterial and protozoal infections. It will not work for colds, flu, or other viral infections. How should I use this medicine? Take this medicine by mouth with a full glass of water. Follow the directions on the prescription label. Take your medicine at regular intervals. Do not take your medicine more often than directed. Take all of your medicine as directed even if you think you are better. Do not skip doses or stop your medicine early. Talk to your chef assistant regarding the use of this medicine in children. Special care may be needed. What side effects may I notice from receiving this medicine? Side effects that you should report to your doctor or health child care supervisor as soon as possible: allergic reactions like skin rash or hives, swelling of the face, lips, or tongue confusion, clumsiness difficulty speaking discolored or sore mouth dizziness fever, infection numbness, tingling, pain or weakness in the hands or feet trouble passing urine or change in the amount of urine redness, blistering, peeling or loosening of the skin, including inside the mouth seizures unusually weak or tired vaginal irritation, dryness, or discharge Side effects that usually do not require medical attention (report to your doctor or health child care supervisor if they continue or are bothersome): diarrhea headache irritability metallic taste nausea stomach pain or cramps trouble sleeping What may interact with this medicine? Do not take this medicine with any of the following medications: alcohol or any product that contains alcohol amprenavir oral solution cisapride disulfiram dofetilide dronedarone paclitaxel injection pimozide ritonavir oral solution sertraline oral solution sulfamethoxazole-trimethoprim injection thioridazine ziprasidone This medicine may also interact with the following medications: cimetidine lithium other medicines that prolong the QT interval (cause an abnormal heart rhythm) phenobarbital phenytoin warfarin What if I miss a dose? If you miss a dose, take it as soon as you can. If it is almost time for your next dose, take only that dose. Do not take double or extra doses. Where should I keep my medicine? Keep out of the reach of children. Store at room temperature below 25 degrees C (77 degrees F). Protect from light. Keep container tightly closed. Throw away any unused medicine after the expiration date. What should I tell my health care provider before I take this medicine? They need to know if you have any of these conditions: anemia or other blood disorders disease of the nervous system fungal or yeast infection if you drink alcohol containing drinks liver disease seizures an unusual or allergic reaction to metronidazole, or other medicines, foods, dyes, or preservatives or trying to get breast-feeding What should I watch for while using this medicine? Tell your doctor or health child care supervisor if your symptoms do not improve or if they get worse. You may get drowsy or dizzy. Do not drive, use machinery, or do anything that needs mental alertness until you know how this medicine affects you. Do not stand or sit up quickly, especially if you are an older patient. This reduces the risk of dizzy or fainting spells. Avoid alcoholic drinks while you are taking this medicine and for three days afterward. Alcohol may make you feel dizzy, sick, or flushed. If you are being treated for a sexually transmitted disease, avoid sexual contact until you have finished your treatment. Your sexual partner may also need treatment. You have been given the following additional information: Ciprofloxacin Hydrochloride Oral tablet Metronidazole Oral tablet Do not work today, tomorrow. (Electronically signed by Dany Bell Dr. 01/10/2017 21:22)
--- NOTE | 2017-01-10 21:23 | ED DISCHARGE INSTRUCTIONS ---
Patient: LIVAN HOLLOWAY General Instructions [facility] VisitID: [id number] [place] [address] 41y, F Registration Date/Time: 01/10/2017 Acute infectious colitis. No ischemic colitis. INSTRUCTIONS Do not work today, tomorrow. Drink plenty of fluids until better. (Gatoraid/Poweraid). Your Current Medications: CONTINUE TAKING THE FOLLOWING MEDICATIONS: None*. Prescription Medications: Cipro 500 mg: take 1 tab orally every 12 hours for 7 days. No refills. Substitution is permissible. Flagyl 500 mg: Take 1 tablet orally every 12 hours for 7 days. No refill. Substitution is permissible Follow-up: Follow up with your doctor in about two days. Call for an appointment. Screening today revealed the patient's blood pressure to be in the pre-hypertensive range. The patient should follow up with a primary care provider for blood pressure management. ADDITIONAL INFORMATION Ciprofloxacin Hydrochloride Oral tablet What is this medicine? CIPROFLOXACIN (sip sharon FLOX a sin) is a quinolone antibiotic. It is used to treat certain kinds of bacterial infections. It will not work for colds, flu, or other viral infections. How should I use this medicine? Take this medicine by mouth with a glass of water. Follow the directions on the prescription label. Take your medicine at regular intervals. Do not take your medicine more often than directed. Take all of your medicine as directed even if you think your are better. Do not skip doses or stop your medicine early. You can take this medicine with food or on an empty stomach. It can be taken with a meal that contains dairy or calcium, but do not take it alone with a dairy product, like milk or yogurt or calcium-fortified juice. A special MedGuide will be given to you by the pharmacist with each prescription and refill. Be sure to read this information carefully each time. Talk to your garment inspector regarding the use of this medicine in children. Special care may be needed. What side effects may I notice from receiving this medicine? Side effects that you should report to your doctor or health field care advocate as soon as possible: - allergic reactions like skin rash, itching or hives, swelling of the face, lips, or tongue - breathing problems - confusion, nightmares or hallucinations - feeling faint or lightheaded, falls - irregular heartbeat - joint, muscle or tendon pain or swelling - pain or trouble passing urine -persistent headache with or without blurred vision - redness, blistering, peeling or loosening of the skin, including inside the mouth - seizure - unusual pain, numbness, tingling, or weakness Side effects that usually do not require medical attention (report to your doctor or health field care advocate if they continue or are bothersome): - diarrhea - nausea or stomach upset - white patches or sores in the mouth What may interact with this medicine? Do not take this medicine with any of the following medications: cisapride droperidol terfenadine tizanidine This medicine may also interact with the following medications: antacids caffeine cyclosporin didanosine (ddI) buffered tablets or powder medicines for diabetes medicines for inflammation like ibuprofen, naproxen methotrexate multivitamins omeprazole phenytoin probenecid sucralfate theophylline warfarin What if I miss a dose? If you miss a dose, take it as soon as you can. If it is almost time for your next dose, take only that dose. Do not take double or extra doses. Where should I keep my medicine? Keep out of the reach of children. Store at room temperature below 30 degrees C (86 degrees F). Keep container tightly closed. Throw away any unused medicine after the expiration date. What should I tell my health care provider before I take this medicine? They need to know if you have any of these conditions: -bone problems -cerebral disease -joint problems -irregular heartbeat -kidney disease -liver disease -myasthenia gravis -seizure disorder -tendon problems -an unusual or allergic reaction to ciprofloxacin, other antibiotics or medicines, foods, dyes, or preservatives - or trying to get -breast-feeding What should I watch for while using this medicine? Tell your doctor or health field care advocate if your symptoms do not improve. Do not treat diarrhea with over the counter products. Contact your doctor if you have diarrhea that lasts more than 2 days or if it is severe and watery. You may get drowsy or dizzy. Do not drive, use machinery, or do anything that needs mental alertness until you know how this medicine affects you. Do not stand or sit up quickly, especially if you are an older patient. This reduces the risk of dizzy or fainting spells. This medicine can make you more sensitive to the sun. Keep out of the sun. If you cannot avoid being in the sun, wear protective clothing and use sunscreen. Do not use sun lamps or tanning beds/booths. Avoid antacids, aluminum, calcium, iron, magnesium, and zinc products for 6 hours before and 2 hours after taking a dose of this medicine. Metronidazole Oral tablet What is this medicine? METRONIDAZOLE (me florence NI da zolanat) is an antiinfective. It is used to treat certain kinds of bacterial and protozoal infections. It will not work for colds, flu, or other viral infections. How should I use this medicine? Take this medicine by mouth with a full glass of water. Follow the directions on the prescription label. Take your medicine at regular intervals. Do not take your medicine more often than directed. Take all of your medicine as directed even if you think you are better. Do not skip doses or stop your medicine early. Talk to your garment inspector regarding the use of this medicine in children. Special care may be needed. What side effects may I notice from receiving this medicine? Side effects that you should report to your doctor or health field care advocate as soon as possible: allergic reactions like skin rash or hives, swelling of the face, lips, or tongue confusion, clumsiness difficulty speaking discolored or sore mouth dizziness fever, infection numbness, tingling, pain or weakness in the hands or feet trouble passing urine or change in the amount of urine redness, blistering, peeling or loosening of the skin, including inside the mouth seizures unusually weak or tired vaginal irritation, dryness, or discharge Side effects that usually do not require medical attention (report to your doctor or health field care advocate if they continue or are bothersome): diarrhea headache irritability metallic taste nausea stomach pain or cramps trouble sleeping What may interact with this medicine? Do not take this medicine with any of the following medications: alcohol or any product that contains alcohol amprenavir oral solution cisapride disulfiram dofetilide dronedarone paclitaxel injection pimozide ritonavir oral solution sertraline oral solution sulfamethoxazole-trimethoprim injection thioridazine ziprasidone This medicine may also interact with the following medications: cimetidine lithium other medicines that prolong the QT interval (cause an abnormal heart rhythm) phenobarbital phenytoin warfarin What if I miss a dose? If you miss a dose, take it as soon as you can. If it is almost time for your next dose, take only that dose. Do not take double or extra doses. Where should I keep my medicine? Keep out of the reach of children. Store at room temperature below 25 degrees C (77 degrees F). Protect from light. Keep container tightly closed. Throw away any unused medicine after the expiration date. What should I tell my health care provider before I take this medicine? They need to know if you have any of these conditions: anemia or other blood disorders disease of the nervous system fungal or yeast infection if you drink alcohol containing drinks liver disease seizures an unusual or allergic reaction to metronidazole, or other medicines, foods, dyes, or preservatives or trying to get breast-feeding What should I watch for while using this medicine? Tell your doctor or health field care advocate if your symptoms do not improve or if they get worse. You may get drowsy or dizzy. Do not drive, use machinery, or do anything that needs mental alertness until you know how this medicine affects you. Do not stand or sit up quickly, especially if you are an older patient. This reduces the risk of dizzy or fainting spells. Avoid alcoholic drinks while you are taking this medicine and for three days afterward. Alcohol may make you feel dizzy, sick, or flushed. If you are being treated for a sexually transmitted disease, avoid sexual contact until you have finished your treatment. Your sexual partner may also need treatment. You have been given the following additional information: Ciprofloxacin Hydrochloride Oral tablet Metronidazole Oral tablet Do not work today, tomorrow. (Electronically signed by Dany Bell Dr. 01/10/2017 21:22)
--- NOTE | 2017-01-10 21:23 | ED MAR SUMMARY ---
..... Medication Administration Record [facility] [address] [place] [address] Patient: LIVAN HOLLOWAY Visit ID: [id number] 41y, F Weight: 108.8 kg Height/Length: 65 in BMI: 40 ALLERGIES: Amoxicillin Start 10:37 01/10/2017 Ruddy Vaca R.N., Stop 14:01 01/10/2017 Ruddy Vaca R.N. Medication Administered: IV NS (SALINE), Dose: IV Fluids over 1 hour(s), Rate: 999 mL/hr, Dispensed: 1000 mL bag, Site: #1 left upper arm. Medication Ordered: IV NS : initial bolus none -, then 1000 mL/hr for X1 (NOW). Given 10:01/10/2017 Ruddy Vaca R.N. Medication Administered: ZOFRAN [IVP] (ONDANSETRON HCL), Dose: 4 mg IVP over 2 minute(s), Site: #1 left upper arm. Medication Ordered: Zofran IV 4 mg (NOW). Given 12:01/10/2017 Tesha House R.N. Medication Administered: POTASSIUM CHLORIDE [PO] (POTASSIUM CHLORIDE ER), Dose: 20 meq Tablets PO. Medication Ordered: Potassium Chloride PO 20 meq (NOW). Given 12:01/10/2017 Tesha House R.N. Medication Administered: BENTYL [PO] (DICYCLOMINE HCL), Dose: 20 mg Tablets PO. Medication Ordered: Bentyl PO 20 mg (NOW). Given 15:01/10/2017 Ruddy Vaca R.N. Medication Administered: CIPROFLOXACIN [PO] (CIPROFLOXACIN), Dose: 500 mg Tablets PO. Medication Ordered: Ciprofloxacin PO 500 mg (NOW). Given 15:01/10/2017 Ruddy Vaca R.N. Medication Administered: FLAGYL [PO] (METRONIDAZOLE), Dose: 500 mg Tablets PO. Medication Ordered: Flagyl PO 500 mg (NOW).
--- NOTE | 2017-01-10 21:23 | ED MED RECONCILIATION SUMMARY ---
Patient: LIVAN HOLLOWAY Medication Reconciliation Report [facility] VisitID: [id number] [address] [place] [address] 41y, F Registration Date/Time: 01/10/2017 Weight: 108.8 kg Height/Length: 65 in. BMI: 40.0 ALLERGIES: Amoxicillin The patient's Home Medications are listed below: NONE. The source(s) of the original Home Medication information: patient The following Medications were given to the patient in the Emergency Department: IV NS IV Fluids bolus 0, then 999 mL/hr, administered: 01/10/2017 10:37:00 AM Zofran [IVP] IVP 4 mg, administered: 01/10/2017 10:37:00 AM Potassium Chloride [PO] PO 20 meq, administered: 01/10/2017 12:26:00 PM Bentyl [PO] PO 20 mg, administered: 01/10/2017 12:26:00 PM Ciprofloxacin [PO] PO 500 mg, administered: 01/10/2017 3:30:00 PM Flagyl [PO] PO 500 mg, administered: 01/10/2017 3:31:00 PM The following Medications were prescribed to the patient: Cipro 500 mg: take 1 tab orally every 12 hours for 7 days. No refills. Substitution is permissible. -- Dany Bell Dr. Flagyl 500 mg: Take 1 tablet orally every 12 hours for 7 days. No refill. Substitution is permissible -- Dany Bell Dr.
--- NOTE | 2017-01-10 21:23 | ED MAR SUMMARY ---
..... Medication Administration Record [facility] [address] [place] [address] Patient: LIVAN HOLLOWAY Visit ID: [id number] 41y, F Weight: 108.8 kg Height/Length: 65 in BMI: 40 ALLERGIES: Amoxicillin Start 10:37 01/10/2017 Ruddy Vaca R.N., Stop 14:01 01/10/2017 Ruddy Vaca R.N. Medication Administered: IV NS (SALINE), Dose: IV Fluids over 1 hour(s), Rate: 999 mL/hr, Dispensed: 1000 mL bag, Site: #1 left upper arm. Medication Ordered: IV NS : initial bolus none -, then 1000 mL/hr for X1 (NOW). Given 10:01/10/2017 Ruddy Vaca R.N. Medication Administered: ZOFRAN [IVP] (ONDANSETRON HCL), Dose: 4 mg IVP over 2 minute(s), Site: #1 left upper arm. Medication Ordered: Zofran IV 4 mg (NOW). Given 12:01/10/2017 Tesha House R.N. Medication Administered: POTASSIUM CHLORIDE [PO] (POTASSIUM CHLORIDE ER), Dose: 20 meq Tablets PO. Medication Ordered: Potassium Chloride PO 20 meq (NOW). Given 12:01/10/2017 Tesha House R.N. Medication Administered: BENTYL [PO] (DICYCLOMINE HCL), Dose: 20 mg Tablets PO. Medication Ordered: Bentyl PO 20 mg (NOW). Given 15:01/10/2017 Ruddy Vaca R.N. Medication Administered: CIPROFLOXACIN [PO] (CIPROFLOXACIN), Dose: 500 mg Tablets PO. Medication Ordered: Ciprofloxacin PO 500 mg (NOW). Given 15:01/10/2017 Ruddy Vaca R.N. Medication Administered: FLAGYL [PO] (METRONIDAZOLE), Dose: 500 mg Tablets PO. Medication Ordered: Flagyl PO 500 mg (NOW).
--- NOTE | 2017-01-10 21:23 | ED MED RECONCILIATION SUMMARY ---
Patient: LIVAN HOLLOWAY Medication Reconciliation Report [facility] VisitID: [id number] [address] [place] [address] 41y, F Registration Date/Time: 01/10/2017 Weight: 108.8 kg Height/Length: 65 in. BMI: 40.0 ALLERGIES: Amoxicillin The patient's Home Medications are listed below: NONE. The source(s) of the original Home Medication information: patient The following Medications were given to the patient in the Emergency Department: IV NS IV Fluids bolus 0, then 999 mL/hr, administered: 01/10/2017 10:37:00 AM Zofran [IVP] IVP 4 mg, administered: 01/10/2017 10:37:00 AM Potassium Chloride [PO] PO 20 meq, administered: 01/10/2017 12:26:00 PM Bentyl [PO] PO 20 mg, administered: 01/10/2017 12:26:00 PM Ciprofloxacin [PO] PO 500 mg, administered: 01/10/2017 3:30:00 PM Flagyl [PO] PO 500 mg, administered: 01/10/2017 3:31:00 PM The following Medications were prescribed to the patient: Cipro 500 mg: take 1 tab orally every 12 hours for 7 days. No refills. Substitution is permissible. -- Dany Bell Dr. Flagyl 500 mg: Take 1 tablet orally every 12 hours for 7 days. No refill. Substitution is permissible -- Dany Bell Dr.
== END 2017-01-10 15:35 | disposition home or self-care (01) ==
LOC: ED SRH 09:15
DX: A09 Infectious gastroenteritis and colitis, unspecified (principal); Z88.0 Allergy status to penicillin
CPT/HCPCS: 90004; 90074; 90100; 90112; 92235; 92530; 93070; 95059; 99262